=== PATIENT | female | born 1995 | race Caucasian/White ===

== ENCOUNTER 2017-04-24 19:30 | Emergency (ER) | payer OTHER ==
[2017-04-24 20:08] VITALS: BP 131/78
--- NOTE | 2017-04-24 20:20 | ED ---
HPI Chest Pain - HPI Summary HPI Summary: 21 yr old with cough productive of yellow sputum for two weeks, and for three days has had pain in the right lower ribs with coughing and deep breathing. She states she has been congested and had post nasal drip. No fever or chills. No Leg pain, no leg swelling. She is a non smoker. She is on control. - History of Current Complaint Chief Complaint: UCGeneralIllness Time Seen by Provider: 04/24/17 20:09 Hx Last Menstrual Period: 03/14/17 Pain Intensity: 7 - Allergy/Home Medications Allergies/Adverse Reactions: Allergies Allergy/AdvReac Type Severity Reaction Status Date / Time No Known Allergies Allergy Verified 04/24/17 19:59 Home Medications: Home Medications Azithromyxin DARVIN (NF) [Z-Darvin (Zithromax) 250 mg tabs #6] 1 tab PO .TODAY, THEN 1 DAILY 04/24/17 [History Confirmed 04/24/17] Norethin Acet & Estrad-Fe [Blisovi Fe 04/19 1-20 mg-Mcg] 1 tab PO DAILY 04/24/17 [History Confirmed 04/24/17] PMH/Surg Hx/FS Hx/Imm Hx Previously Healthy: Yes Infectious Disease History: No Infectious Disease History: Denies: Traveled Outside the [place] in Last 30 Days - Family History Known Family History: Positive: None - Social History Occupation: Student Lives: Dormitory/Roommates Alcohol Use: Occasionally Substance Use Type: Reports: None Smoking Status (MU): Never Smoked Tobacco Review of Systems Negative: Fever, Chills Positive: Nasal Discharge Positive: Chest Pain Positive: Cough All Other Systems Reviewed And Are Negative: Yes Physical Exam Triage Information Reviewed: Yes Vital Signs On Initial Exam: Initial Vitals Temp Pulse Resp BP Pulse Ox 99.5 F 94 18 131/78 97 04/24/17 20:01 04/24/17 20:01 04/24/17 20:01 04/24/17 20:01 04/24/17 20:01 Vital Signs Reviewed: Yes Appearance: Positive: Well-Appearing, No Pain Distress Skin: Positive: Warm, Skin Color Reflects Adequate Perfusion Eyes: Positive: EOMI ENT: Positive: Pharynx normal, Nasal congestion Neck: Positive: Nontender Respiratory/Lung Sounds: Positive: Clear to Auscultation, Breath Sounds Present Cardiovascular: Positive: RRR. Negative: Murmur Abdomen Description: Positive: Nontender Musculoskeletal: Positive: Strength/ROM Intact. Negative: Edema Left, Edema Right Neurological: Positive: Sensory/Motor Intact, Alert, Oriented to Person Place, Time, CN Intact II-III Psychiatric: Positive: Normal - Deep Coma Scale Best Eye Response: 4 - Spontaneous Best Motor Response: 6 - Obeys Commands Best Verbal Response: 5 - Oriented Coma Scale Total: 15 Diagnostics - Vital Signs Vital Signs Temp Pulse Resp BP Pulse Ox 04/24/17 20:01 99.5 F 94 18 131/78 97 - Laboratory Lab Statement: Any lab studies that have been ordered have been reviewed, and results considered in the medical decision making process. - Radiology chest xray Xray Interpretation: No Acute Changes Radiology Interpretation Completed By: Radiologist Chest Pain Course/Dx - Course Course Of Treatment: 21 yr old female with cough for a couple of weeks and chest wall strain, in the setting of cold and flu season height. Tessalon dung and albuterol mdi. [place] home. FU with [facility]. - Diagnoses Provider Diagnoses: Cough, Strain of chest wall Discharge - Discharge Plan Condition: Good Disposition: HOME Prescriptions: Albuterol HFA INHALER* [Ventolin HFA Inhaler*] 1 - 2 puff INH Q4H PRN #1 mdi PRN Reason: Cough Benzonatate CAP* [Tessalon 100 MG CAP*] 100 mg PO TID #14 cap Patient Education Materials: Acute Bronchitis (ED), Chest Wall Pain (ED) Referrals: No Primary Care Phys,NOPCP [Primary Care Provider] - [facility] [Outside]
--- NOTE | 2017-04-24 20:50 | RAD ---
Indication: Cough, chest pain. 2 views of the chest including dual energy PA views demonstrates no mediastinal shift. Heart is of normal size and configuration. Lung ray are clear. IMPRESSION: No active cardiopulmonary disease is noted.
== END 2017-04-24 21:12 | disposition home or self-care (01) ==
LOC: UCCORT 19:30
DX: R05 Cough (principal); S29.011A Strain of muscle and tendon of front wall of thorax, initial encounter; X50.9XXA Other and unspecified overexertion or strenuous movements or postures, initial encounter; Y93.9 Activity, unspecified; Y92.9 Unspecified place or not applicable
CPT/HCPCS: 71046; 99202; G0463